=== PATIENT | male | born 1990 | race Caucasian/White ===

== ENCOUNTER 2018-12-01 19:16 | Emergency (ER) | payer OTHER, SELFPAY ==
[2018-12-01 19:35] VITALS: BP 149/103; PULSE 80; RESP 18; TEMP 37.4; O2SAT 97
[2018-12-01] MEDS: Fluorescein STRIPS 100/BOX 1 MG (20:19)
[2018-12-01] MEDS: Tetracaine 0.5% 4 ML BTL (20:19)
--- NOTE | 2018-12-01 20:27 | W.ED.GENAD ---
Discharge Plan Disposition Patient Disposition: HOME Condition: Good Discharge Details Chief Complaint: EyeProblem Clinical Impression: Abrasion of cornea, right Primary Care Provider: Josefina Cantu ED Provider: Marvin Muñoz Discharge Instructions Instructions: Corneal Abrasion (ED) Additional Instructions: Please use the erythromycin ointment on your eye 3-4 times per day. Please follow-up with your assistant professor of nursing as soon as possible for reassessment. If you notice any worsening of your symptoms, or any new symptoms such as vomiting, diarrhea, fever, chills, shortness of breath, chest pain, numbness, weakness, or fainting , please return immediately to the emergency department for reevaluation. Please follow up with your primary care provider as soon as possible for reassessment and reevaluation. As always, it was a pleasure participating in your medical care today. Referrals: [facility] [[facility] - Discharge Data Discharge Date/Time-TO BE ENTERED AT DEPARTURE: 12/01/18 20:40 Medical Decision Making This is a pleasant 28-year-old male who was working with some metal the other day and got something in his right eye. He is not a contact lens wearer. Tetanus is not up-to-date. Exam demonstrates a corneal abrasion on the right eye, no rust ring, no retained foreign body, negative Haritha sign. Eversion of the lids demonstrates no abnormalities. Patient will be to replace and ointment, and recommend close follow-up with Dr. Devlin for eye care. We discussed red flags for which to return. Tetanus has been updated. I have extensively reviewed the treatment plan and discharge instructions with the patient and their family. I have addressed all patient concerns at this time. The patient and family was made aware of what symptoms to monitor for that would warrant a return to the emergency department. Discussed the plan with the patient and family, they demonstrate verbal understanding and agreement with our assessment and plan at this time. HPI General Date/Time Provider Initiated Documentation: 12/01/18 20:25. HPI Narrative: This is a pleasant 28-year-old male with no past medical history who is not updated on his tetanus and is not a contact lens wearer who presents today for right eye pain. He was working with some metal roe when a fragment got in his right eye yesterday. He has had mild to moderate pain since then, with tearing. He does have mild blurry vision. He denies any fever chills or other complaints. No other modifying factors. He has tried to wash his eye out multiple times with no improvement of his symptoms. Related Data Allergies Allergy/AdvReac Type Severity Reaction Status Date / Time No Known Allergies Allergy Unverified 12/01/18 19:40 General Stated Complaint: EyeProblem MARY: 3 Review of Systems Review of Systems All systems reviewed & are unremarkable except as noted in HPI and below PFSH Social History Smoking/Tobacco Use Status: Never Alcohol Intake: current Alcohol Intake frequency: 0-2 drinks per day Substance use type: does not use Do you feel safe at home: Yes Do you feel safe in your relationship?: Yes Exam Narrative Exam Narrative: 1.Const: Well-nourished, Well-developed, appearing stated age 2.Eyes: PERRL, no conjunctival injection, and symmetrical lids. Right eye: EOMI, PERRL, Peripheral vision intact. No nystagmus. No external signs of preseptal cellulitis, no redness around the eye, no proptosis. No hyphema, no signs of trauma around the eye, no periorbital emphysema. Fluorescein exam is positive for corneal abrasion, negative Haritha sign. Visual acuity as documented in chart. No evidence of rust ring or retained foreign body. Eversion of the lids demonstrates no retained foreign body. 3.ENT: Atraumatic external nose and ears. Moist MM. Neck: Symmetric, trachea midline, No thyromegaly. 4.CVS: +S1/S2, No murmurs or gallops. Peripheral pulses 2+ and equal in all extremities. Brisk capillary refill in all extremities. 5.RESP: Unlabored respiratory effort. Clear to auscultation bilaterally. No wheezes rales or rhonchi 6.GI: Soft, Nontender/Nondistended, No hepatosplenomegaly. No guarding or rebound. 7.MSK: Normocephalic/Atraumatic, Extremities w/o deformity or ttp No cyanosis or clubbing, Normal movement of all extremities 8.Skin: Warm, Dry. No rashes or lesions. 9.Neuro: dye mixer II-XII grossly intact. Sensation grossly intact, no focal neurologic deficits. 10.Psych: (AAO) x3. Appropriate mood and affect Course Vital Signs Temperature 37.4 C 12/01/18 19:35 Pulse 80 12/01/18 19:35 Respiratory Rate 18 12/01/18 19:35 Blood Pressure 149/103 H 12/01/18 19:35 Pulse Oximetry 97 12/01/18 19:35 Temperature 37.4 C 12/01/18 19:35 Temperature Source Temporal Artery Scan 12/01/18 19:35 Pulse 80 12/01/18 19:35 Respiratory Rate 18 12/01/18 19:35 Respiratory Effort Non-Labored 12/01/18 19:35 Blood Pressure 149/103 H 12/01/18 19:35 Blood Pressure Position Sitting 12/01/18 19:35 Pulse Oximetry 97 12/01/18 19:35 Oxygen Delivery Method Room Air 12/01/18 19:35 Oxygen Flow Rate 0 12/01/18 19:35 Pain Level 7 12/01/18 19:35
[2018-12-01] MEDS: Erythromycin Ophth Oint 3.5 GM TUBE OD (20:34)
== END 2018-12-01 20:40 | disposition home or self-care (01) ==
PROVIDERS: Emergency Provider Student in an Organized Health Care Education/Training Program; PCP Nurse Practitioner Family
DX: S05.01XA Injury of conjunctiva and corneal abrasion without foreign body, right eye, initial encounter (principal); X58.XXXA Exposure to other specified factors, initial encounter
CPT/HCPCS: 90471; 99284